=== PATIENT | male | born 1970 | race Hispanic/Latino ===

== ENCOUNTER 2019-04-22 19:29 | Emergency (ER) | payer SELFPAY ==
[2019-04-23 21:26] LABS: Chlam.trachomatis by PCR,Urine Not Detected (NotDetected)
== END 2019-04-22 20:42 | disposition home or self-care (01) ==
LOC: ERS 19:29
DX: N47.6 Balanoposthitis (principal); E11.9 Type 2 diabetes mellitus without complications; F17.210 Nicotine dependence, cigarettes, uncomplicated
CPT/HCPCS: 87491; 87591; 99283

== ENCOUNTER 2020-01-07 11:15 | Emergency (ER) | payer OTHER, SELFPAY ==
--- NOTE | 2020-01-07 12:40 | RAD ---
EXAM: Single view of the chest HISTORY: Intermittent chest pain and cough. Possible Covid 19 exposure COMPARISON: 02/17/2008 FINDINGS: Single view of the chest shows a normal sized cardiomediastinal silhouette. There is no gonzalez dence of consolidation, mass, or pleural effusion. The bones are unremarkable. IMPRESSION: No evidence of acute cardiopulmonary disease
[2020-01-08 15:04] LABS: SARS-CoV-2 MS2 Positive; SARS-CoV-2 N Gene Negative; SARS-CoV-2 S Gene Negative; SARS-CoV-2 orf1ab Negative
== END 2020-01-07 14:06 | disposition home or self-care (01) ==
LOC: ERS 11:15
DX: R50.9 Fever, unspecified (principal); R51 Headache; R05 Cough; Z20.828 Contact with and (suspected) exposure to other viral communicable diseases; F17.210 Nicotine dependence, cigarettes, uncomplicated; E11.9 Type 2 diabetes mellitus without complications
CPT/HCPCS: 71045; 87635; U0003